=== PATIENT | female | born 1985 | race African-American/Black ===

== ENCOUNTER → 2016-07-25 | Emergency (ER) | payer BC, SELFPAY | LOC: NAV ERS 21:37 | DX: Z53.21 Procedure and treatment not carried out due to patient leaving prior to being seen by health care provider (principal) ==

== ENCOUNTER 2016-12-30 23:16 | Emergency (ER) | payer SELFPAY ==
[~2016-12-30 23:16] MED LIST: Iopamidol 370 76% 100 ML VIAL ONE
[2016-12-30 23:44] LABS: #Basophils 0.1 thou/uL (0.0-0.2); #Lymphocytes 2.8 thou/uL (1.20-3.40); #Monocytes 1.1 thou/uL (0.11-0.59); #Neutrophils 14.2 thou/uL (1.40-6.50); %Basophils 0.7 % (0.0-1.0); %Eosinophils 0.1 % (0.0-10.0); %Lymphocytes 15.4 % (21.0-51.0); %Monocytes 6.1 % (0.0-10.0); %Neutrophils 77.6 % (42.0-75.0); Hemoglobin 12.7 g/dL (12.0-16.0); Mean Corpuscular HGB CONC 30.9 g/dL (32.0-36.0); Mean Corpuscular Hemoglobin 26.7 pg (27.0-31.0); Mean Corpuscular Volume 86.5 fl (81.0-99.0); Mean Platelet Volume 8.5 fL (7.4-10.4); Platelet Count 294 thou/uL (130-400); RBC Distribution Width 12.1 % (11.5-14.5); Red Blood Cell (RBC) Count 4.77 mill/uL (4.20-5.40); White Blood Cell (WBC) Count 18.3 thou/uL (4.8-10.8)
[2016-12-30 23:47] LABS: Bilirubin Negative (Negative); Blood, Urine Trace (Negative); Clarity Clear (Clear); Glucose, Urine (Dipstick) Negative (Negative); Leukocyte Trace (Negative); Nitrite Negative (Negative); Protein, Urine (Dipstick) Negative (Neg-Trace); Urobilinogen 0.2 mg/dL (0.2-1.0)
[2016-12-30 23:48] LABS: Pregnancy Test - Urine (BHCG) Negative (Negative); Pregu Control Background? CLEAR/WHITE (CLR/WHITE); Pregu Control Bar Appear? YES (CONTROL BAR)
[2016-12-30 23:50] LABS: Bacteria/HPF Rare-Few HPF (None Seen); RBC/HPF 0-3 HPF (0-3); WBC/HPF 0-3 HPF (0-3)
[2016-12-30] MEDS ORDERED: Ondansetron HCl/PF 4 MG/2 ML Vial ONE (23:55)
[2016-12-31 00:01] LABS: ALT (SGPT) 16 U/L (8-55); AST (SGOT) 15 U/L (5-34); Albumin 4.4 g/dL (3.5-5.0); Alkaline Phosphatase 51 U/L (40-150); Anion Gap 12 mmol/L (10-20); BUN (Urea Nitrogen) 8 mg/dL (7.0-18.7); Bilirubin, Total 0.3 mg/dL (0.2-1.2); Calc. Creatinine Clearance 0 mL/min (70-130); Calcium 9.4 mg/dL (7.8-10.44); Carbon Dioxide 25 mmol/L (22-29); Chloride 105 mmol/L (98-107); Estimated GFR-MDRD Greater than 90; Globulin 3.7 g/dL (2.4-3.5); Glucose 96 mg/dL (70-105); Lipase 9 U/L (8-78); Potassium 3.4 mmol/L (3.5-5.1); Protein, Total 8.1 g/dL (6.0-8.3); Sodium 139 mmol/L (136-145)
[2016-12-31] MEDS ORDERED: Piperacillin/Tazobactam 3.375 GM VIAL ONE (02:16)
[2016-12-31] MEDS ORDERED: Sodium Chloride 0.9% 100 ML ONE (02:16)
--- NOTE | 2016-12-31 08:49 | CT ---
PRELIMINARY REPORT/[facility]/EMERGENCY AFTER HOURS PROCEDURE: Addendum created by Thomas Perez MD on 12/31/2016 2:04 AM Central Time ([place] \T\ [place]) THIS REPORT CONTAINS FINDINGS THAT MAY BE CRITICAL TO PATIENT CARE. The findings were verbally commu nicated via telephone conference with GARY KNIGHT at 2:04 AM BLEND TECHNICIAN on 12/31/2016. The findings were ac knowledged and understood. Initial Report created on 12/31/2016 2:03 AM Central Time ([place] \T\ [place]) EXAM: CT Abdomen and Pelvis With Intravenous Contrast EXAM DATE/TIME: Exam ordered 12/31/2016 1:43 AM CLINICAL HISTORY: 31 years old, female; Pain; Abdominal pain; Localized; Right lower quadrant (rlq); Patient HX: Pt wi th periumbilical abd pain starting yesterday. Tonight worse and moved to rlq. Associated with nausea that is currently resolved. Hurts to move or take deep breaths. TECHNIQUE: Axial computed tomography images of the abdomen and pelvis with intravenous contrast. All CT scans a t this facility use one or more dose reduction techniques, viz.: automated exposure control; ma/kV a djustment per patient size (including targeted exams where dose is matched to indication; i.e. head) ; or iterative reconstruction technique. Coronal and sagittal reformatted images were created and reviewed. CONTRAST: 96 mL of ISOVUE 370 administered intravenously. COMPARISON: No relevant prior studies available. FINDINGS: Lower thorax: There is subpleural atelectasis of the dependent portions of the lungs. ABDOMEN: Liver: There are no focal liver lesions present. Gallbladder and bile ducts: The gallbladder is normal. There is no evidence of biliary ductal dilati on. No calcified stones. Pancreas: The pancreas is normal. No ductal dilation. Spleen: The spleen is normal. Adrenals: The adrenal glands are normal. Kidneys and ureters: The kidneys are normal. No hydronephrosis. Stomach and bowel: The stomach is normal. There is no evidence of intestinal perforation or obstruct ion. The colon is normal. No mucosal thickening. Appendix: There is dilatation of the appendix up to 14 mm with severe periappendiceal inflammatory s tranding consistent with severe acute appendicitis. There is trace periappendiceal fluid. PELVIS: Bladder: The bladder is moderately distended. Reproductive: The uterus is normal. ABDOMEN and PELVIS: Intraperitoneal space: Normal. No free air. No significant fluid collection. Bones/joints: No acute fracture. No dislocation. Soft tissues: Normal. Vasculature: The vasculature is normal. No abdominal aortic aneurysm. Lymph nodes: Normal. No enlarged lymph nodes. IMPRESSION: There is dilatation of the appendix up to 14 mm with severe periappendiceal inflammatory stranding c onsistent with severe acute appendicitis. Thank you for allowing us to participate in the care of your patient. Dictated and Authenticated by: Thomas Perez MD 12/31/2016 2:03 AM Central Time ([place] \T\ [place]) FINAL REPORT EMERGENT AFTER HOURS CT ABDOMEN AND PELVIS WITH IV CONTRAST: Date: 12-31-16 History: Periumbilical abdominal pain which started one day ago. Pain is now worse and has moved to the right lower quadrant. Associated nausea. IMPRESSION: 1. Acute appendicitis. No fluid collection is seen to suggest an abscess, and there is no free intra peritoneal gas identified. 2. Findings are in agreement with the preliminary report by [facility]. POS: [facility]
== END 2016-12-31 03:33 | disposition short-term general hospital (02) ==
LOC: NAV ERS 23:16
DX: K35.80 Unspecified acute appendicitis (principal)
CPT/HCPCS: 74177; 80053; 81003; 81015; 81025; 83690; 85025; 96361; 96365; 96375; J2270; J2405; J2543; J7050

== ENCOUNTER 2017-06-15 20:10 | Emergency (ER) | payer SELFPAY | END 2017-06-15 21:15 | disposition home or self-care (01) | LOC: NAV ERS 20:10 | DX: Z48.03 Encounter for change or removal of drains (principal) | CPT/HCPCS: 99283 ==

== ENCOUNTER 2017-08-19 17:07 | Emergency (ER) | payer SELFPAY | END 2017-08-19 18:03 | disposition home or self-care (01) | LOC: NAV ERS 17:07 | DX: L91.0 Hypertrophic scar (principal) | CPT/HCPCS: 99282 ==

== ENCOUNTER 2019-05-15 09:33 | Emergency (ER) | payer OTHER, SELFPAY ==
[2019-05-15] MEDS ORDERED: Sulfameth/Trimethoprim DS 800-160mg TAB ONE (10:03)
[2019-05-15] MEDS ORDERED: Cephalexin 250 MG CAP ONE (10:03)
[2019-05-15] MEDS ORDERED: Acetaminophen 500 MG TAB ONE (10:03)
== END 2019-05-15 10:10 | disposition home or self-care (01) ==
LOC: NAV ERS 09:33
DX: L03.115 Cellulitis of right lower limb (principal)
CPT/HCPCS: 99283

== ENCOUNTER 2022-10-05 10:41 | Emergency (ER) | payer OTHER, SELFPAY ==
[2022-10-05] MEDS ORDERED: Lactated Ringer's 1,000 ML ONE (11:11)
[2022-10-05] MEDS ORDERED: Morphine 4 MG/ML VIAL ONE ×2 (11:11→15:11)
[2022-10-05] MEDS ORDERED: Ondansetron PF 4 MG/2 ML Vial ONE (11:11)
[2022-10-05 11:13] LABS: #Basophils 0.1 thou/uL (0.0-0.2); #Eosinphils 0.1 thou/uL (0.0-0.7); #Lymphocytes 1.7 thou/uL (1.20-3.40); #Monocytes 0.6 thou/uL (0.11-0.59); #Neutrophils 8.5 thou/uL (1.40-6.50); %Basophils 0.5 % (0.0-1.0); %Eosinophils 0.7 % (0.0-10.0); %Lymphocytes 15.8 % (21.0-51.0); %Monocytes 5.3 % (0.0-10.0); %Neutrophils 77.7 % (42.0-75.0); Hematocrit 38.8 % (36.0-47.0); Hemoglobin 12.1 g/dL (12.0-16.0); Mean Corpuscular HGB CONC 31.2 g/dL (32.0-36.0); Mean Corpuscular Hemoglobin 26.5 pg (27.0-31.0); Mean Platelet Volume 8.9 fL (7.4-10.4); Platelet Count 257 10x3/uL (130-400); RBC Distribution Width 12.9 % (11.5-14.5); Red Blood Cell (RBC) Count 4.57 mill/uL (4.20-5.40); White Blood Cell (WBC) Count 10.9 10x3/uL (4.8-10.8)
[2022-10-05 11:38] LABS: Bilirubin Negative (Negative); Blood, Urine Negative (Negative); Glucose, Urine (Dipstick) Negative (Negative); Ketone, Urine Negative (Negative); Leukocyte Negative (Negative); Nitrite Negative (Negative); Protein, Urine (Dipstick) Negative (Neg-Trace); Urobilinogen 0.2 mg/dL (Less than 2)
[2022-10-05 11:40] LABS: Clarity Hazy (Clear)
[2022-10-05 11:44] LABS: CAUTI Indications for Culture Pelvic or flank pain; RBC/HPF 0-3 HPF (0-3); Specific Gravity, Urine 1.024 (1.002-1.036); WBC/HPF 0-3 HPF (0-3)
[2022-10-05 11:45] LABS: Pregnancy Test - Urine (BHCG) Negative (Negative); Pregu Control Background? CLEAR/WHITE (CLR/WHITE); Pregu Control Bar Appear? YES (CONTROL BAR); Specific Gravity 1.024 (1.002-1.036); Urine Culture Reflex No No
[2022-10-05 11:52] LABS: ALT (SGPT) 20 U/L (8-55); AST (SGOT) 15 U/L (5-34); Albumin 3.4 g/dL (3.5-5.0); Alkaline Phosphatase 28 U/L (40-110); Anion Gap 13 mmol/L (10-20); BUN (Urea Nitrogen) 7 mg/dL (7.0-18.7); Bilirubin, Total 0.3 mg/dL (0.2-1.2); Calc. Creatinine Clearance 0 mL/min (70-130); Calcium 8.6 mg/dL (7.8-10.44); Carbon Dioxide 21 mmol/L (22-29); Chloride 109 mmol/L (98-107); Estimated GFR 110; Globulin 2.8 g/dL (2.4-3.5); Glucose 104 mg/dL (70-105); Potassium 3.9 mmol/L (3.5-5.1); Protein, Total 6.2 g/dL (6.0-8.3); Sodium 139 mmol/L (136-145)
[2022-10-05 12:02] LABS: Lipase Less than 4 U/L (8-78)
[2022-10-05] MEDS ORDERED: Sodium Chloride 0.9% 100 ML ONE (14:15)
[2022-10-05] MEDS ORDERED: cefTRIAXone (ROCEPHIN) 1 GM VIAL ONE (14:15)
== END 2022-10-05 16:57 | disposition short-term general hospital (02) ==
LOC: NAV ERS 10:41
DX: R10.11 Right upper quadrant pain (principal)
CPT/HCPCS: 74177; 80053; 81001; 81025; 83690; 85025; 93005; 96361; 96365; 96375; 96376; J0696; J2270; J2405; J3490; J7120; Q9967